=== PATIENT | male | born 1980 | race Caucasian/White ===

== ENCOUNTER → 2021-02-10 08:33 | Outpatient (BNVA) | payer OTHER, SELFPAY | PROVIDERS: Visit Provider Physician Assistant | DX: S97.112A Crushing injury of left great toe, initial encounter (principal); X50.0XXA Overexertion from strenuous movement or load, initial encounter | CPT/HCPCS: 73630; 99203 ==

== ENCOUNTER → 2021-02-16 13:37 | Outpatient (BNVA) | payer OTHER, SELFPAY | PROVIDERS: Visit Provider Physician Assistant | DX: S97.112D Crushing injury of left great toe, subsequent encounter (principal); X58.XXXD Exposure to other specified factors, subsequent encounter | CPT/HCPCS: 99213 ==

== ENCOUNTER 2024-09-03 14:23 | Emergency (ER) | payer OTHER, SELFPAY ==
--- NOTE | ~2024-09-03 | XR_ITS ---
EXAMINATION: XR ELBOW 3 VIEWS LEFT HISTORY: pain s/p fall COMPARISON: There are no prior studies available for comparison. FINDINGS: Four views of the left elbow are submitted. Osseous mineralization is normal. There is a moderately displaced intra-articular fracture of the proximal ulna. There is no dislocation. The joint spaces are preserved. There is a joint effusion with elevation of the anterior and posterior fat pads. XR/XR elbow LT min 3V IMPRESSION: Moderately displaced intra-articular fracture of the proximal ulna. Electronically signed by: Joesph Canales MD 09/03/2024 03:23 PM LISA
--- NOTE | 2024-09-03 14:25 | ED.UPPEXIN ---
HPI - Extremity Injury (Upper) General Chief Complaint: Extremity Injury, Upper Stated Complaint: L arm injury Time Seen by Provider: 09/03/24 20:55 History of Present Illness ED Provider: Simeon SEN narrative: The patient is a 44-year-old male who slipped on ice in his driveway yesterday about 24 hours ago. He landed on his left elbow and has had pain ever since. He has no numbness or tingling in his hand. He feels that he is slightly injured his knees and his back but he does not consider these significant injuries and is really here because of the left elbow problem. He did not hit his head. Related Data Previous Rx's ?Medication ?Instructions ?Recorded morphine 15 mg immediate release 15 mg PO Q6H PRN pain #14 tabs 09/03/24 tablet Allergies Allergy/AdvReac Type Severity Reaction Status Date / Time cat dander Allergy Unknown Verified 09/03/24 14:28 Review of Systems Review of Systems: Yes all other systems are reviewed and are negative [facility] Social History Social History Advance Directives: No Advance Directives Information Provided: No Physical Exam Vital Signs: Vital Signs: Last Vital Signs Temp 98.7 F 09/03/24 21:02 Pulse 76 09/03/24 21:02 Resp 16 09/03/24 21:02 BP 165/92 H 09/03/24 21:02 Pulse Ox 100 09/03/24 21:02 O2 Del Method Room Air 09/03/24 21:02 BMI result Body Mass Index 37.4 Const: Other: The patient is awake, alert, pleasant, cooperative. He appears mildly uncomfortable. HEENT: Other: No signs of trauma to the head or the face. Mucous membranes are moist. Eyes: General: appearance normal, both eyes and all related structures Neck: Neck: Yes full ROM Resp: Effort & Inspection: normal respiratory effort Skin: Other: There is soft tissue swelling to the skin of the left dorsal proximal forearm near the elbow. The skin is intact. Neuro: Other: The patient is awake and alert with a normal mental status. He has normal sensation and motor function of the left hand. Extrem: Other: The left hand is neurovascularly intact. There is soft tissue swelling to the proximal dorsal left ulnar region near the elbow. Skin is intact. The elbow is tender. Course Course Course Narrative: This is a Rapid Medical Examination (RME) performed by Milton Arora PA-C in triage. Full HPI, ROS, assessment and treatment plan per primary provider in the Main ED. 44 yo male right hand dominant presents to the ER for evaluation of left elbow pain and swelling after he fell onto his left elbow last night on the ice in his driveway. He feels like he broke his arm. He is able to range it slightly but he reports severe pain. no numbness, tingling in his arm. Plan: XR elbow Medications Administered Discontinued Medications Generic Name Dose Route Start Last Admin Trade Name Jay PRN Reason Stop Dose Admin Acetaminophen 975 mg 09/03/24 21:21 09/03/24 21:43 Acetaminophen 325 Mg Tablet PO 09/03/24 21:22 975 mg ONCE ONE Administration Morphine Sulfate 15 mg 09/03/24 21:21 09/03/24 21:43 Morphine Sulfate Immed Release 15 Mg Tablet PO 09/03/24 21:22 15 mg ONCE ONE Administration Medical Decision Making Medical Decision Making MDM Narrative: The patient is a 44-year-old male who presents for evaluation of a left elbow injury that occurred about 24 hours ago when he slipped in his driveway on ice and landed directly in his left elbow. He has soft tissue swelling to the dorsal forearm near the proximal ulna. Skin is intact. The left hand is neurovascularly intact. X-ray shows a fracture of the left proximal ulna near the elbow which is likely intra-articular. I reviewed the x-ray with the on-call orthopedic team. I applied a posterior splint with Orthoglass. A splint was given. Instructions to keep the injury elevated were given. A prescription for morphine was sent to his pharmacy. He should contact the orthopedic office in the morning for prompt follow up and additional advice to discuss further management of this injury. Procedures Orthopedic Splinting/Casting Injury #1: Side: left Upper Extremity Injury Location: elbow Upper Extremity Immobilizer: posterior splint (Orthoglass, cast padding, Greg wrap) Additional Comments: The patient tolerated application of the splint well. The patient was neurovascularly intact after application of the splint. Discharge Plan Discharge Clinical Impression: Closed fracture of left elbow Patient Disposition: Home, Self-Care Instructions: Elbow Fracture (ED) Additional Instructions: You have a fracture of the ulna bone of your forearm near the elbow. You have been placed in a splint to immobilize the injury. You will need to follow up with the orthopedic office soon for additional advice and consideration of possible surgery. Please call the office in the morning. In the meantime please keep the arm still and keep the elbow elevated. You may take 2 extra-strength acetaminophen (Tylenol) up to 3 times per day as needed for pain. In addition I have sent a prescription for morphine tablets that you may use as well. Again please contact the orthopedic office in the morning for a prompt follow up appointment and further consideration of the injury. Return to the emergency room if significantly worse. Prescriptions: New morphine 15 mg tablet 15 mg PO Q6H PRN (Reason: pain) Qty: 14 0RF Rx Instructions: Partial Fill upon patient request. Referrals: [facility] [Provider Group] (left proximal ulnar fracture) [facility] [Provider Group] (Left elbow fracture) Stand Alone Forms: Work/School Release Interventions: ED Discharge Assessment Last Done: 09/03/24 22:02 Print Language: Italian
[2024-09-03 14:26] VITALS: BP 144/94; PULSE 110; RESP 20; TEMP 36.1; O2SAT 96; BMI 37.4
[2024-09-03 21:02] VITALS: BP 165/92; PULSE 76; RESP 16; TEMP 37.1; O2SAT 100
--- OUTSIDE RECORDS SUMMARY | 2024-09-03 21:19 | XMS_ITS | Encounter Summary ---
Author Organization [facility] Address [address] [place] [id number] Care Team Providers Care Residential Aide Name Role Phone Md, Unknown Primary Care Provider Unavailabl e Reason for Referral * Imaging (Routine) - Closed Specialty Diagnoses / Procedures Referred By Penny mcgarry Referred To Contact Radiology Diagnoses Low back pain Procedures XR LUMBAR SPINE 2-3 VIEWS XR LUMBAR SPINE COMPLETE 4+ VIEWS XR LUMBAR SPINE 6+ VIEWS INCLUDING BENDING Cheri Escobar Jr., PA [address] [place] [address] Phone: tel: [phone] fax: [facility] Radiology - Central Sched[place] Phone: tel: fax: Referral ID Status Reason Start Date Expiration Date V isits Requested Visits Authorized [id number] Closed Perform Procedure 05/12/2022 05/12/2023 1 1 Encounter Details Date Type Department Care Team (Late st Contact Info) Description 05/12/2022 Ancillary Orders [facility] Radiology, Outpatient Center (Diag Rad) [address] [facility], [address] [place] [address] Cheri Escobar Jr., PA [address] [place] [address] [phone] (Work) Low back pain Social History Tobacco Use Types Packs/Day Years Used Date Smoking Tobacco: Never Assessed Sex and Gender Information Value Date Recorded Sex Assigned at Not on file Legal Sex Male 10:26 AM EDT Gender Identity Not on file Sexual Orientation Not on file COVID-19 Exposure Response Date Recorded In the last 10 days, have yo u been in contact with someone who was confirmed or suspected to have Coronavirus/COVID-19? No / Unsure 05/12/2022 10:30 AM EDT documented as of this encounter Plan of Treatment Not on file documented as of this encounter Results * XR LUMBAR SPINE 2-3 VIEWS (05/12/2022 11:47 AM EDT) Anatomical Region Laterality Modality Shoulder Computed Radiogr aphy 05/12/2022 12:2 6 PM EDT Impressions 05/12/2022 12:27 PM EDT No significant findings. Narrative 05/12/2022 12:27 PM EDT CLINICAL INDICATION: Low back pain, pain///pt states he has had lower back pain radiating down his legs since 2011. no known injury, PROTOCOL: Lumbar Spine, 3 views, AP and Lateral, and L5-S1 spot. COMPARISON: None. FINDINGS: 3 views. No significant compression deformity. No listhesis. No focal lytic or sclerotic lesions. No significant disc height narrowing. Procedure Note Tomas Murphy MD - 05/12/2022 CLINICAL INDICATION: Low back pain, pain///pt states he has had lower backpain radiating down his legs since 2011. no known injury, PROTOCOL: Lumbar Spine, 3 views, AP and Lateral, and L5-S1 spot. COMPARISON: None. FINDINGS: 3 views. No significant compression deformity. No listhesis. No focal lytic orsclerotic lesions. No significant disc height narrowing. IMPRESSION: No significant findings. us AbadParamjit Escobar Jr., PA IMG XR PROCEDURES F inal Result documented in this encounter Visit Diagnoses Diagnosis Low back pain Lumbago Low back pain Lumbago documented in this encounter Care Teams Residential Aide Relationship Specialty Start Date End Date Md, Unknown 1 Dont Change PCP - General 05/12/22 documented as of this encounter
--- OUTSIDE RECORDS SUMMARY | 2024-09-03 21:19 | XMS_ITS | Encounter Summary ---
Author Organization [facility] Address [address] [place] [address] Care Team Providers Care Induction Machine Setter Name Role Phone Md, Unknown Primary Care Provider Unavailabl e Encounter Details Date Type Department Care Team ([facility] st Contact Info) Description 05/12/2022 Ancillary Orders [facility] Radiology, Outpatient Center (Diag Rad) [address] [facility], [address] [place] [id number] Cheri Escobar Jr., PA [address] [place] [phone] (Work) Low back pain Social History Tobacco [...] on file documented as of this encounter Visit Diagnoses Diagnosis Low back pain Lumbago documented in this encounter Care Teams Induction Machine Setter Relationship Specialty Start Date End Date Md, Unknown 1 Dont Change PCP - General 05/12/22 documented as of this encounter
--- OUTSIDE RECORDS SUMMARY | 2024-09-03 21:19 | XMS_ITS | Encounter Summary ---
Author Organization [facility] Address [address] [place] [address] Care Team Providers Care Zoo Director Name Role Phone Md, Unknown Primary Care Provider Unavailabl e Reason for Referral * Imaging (Routine) - Closed Specialty Diagnoses / Procedures Referred By Penny mcgarry Referred To Contact Radiology Diagnoses Pain Procedures XR THORACIC SPINE 2 VIEWS XR THORACIC SPINE COMPLETE 4+ VIEWS Cheri Escobar Jr., PA [address] [place] [address] Phone: tel: [phone] fax: [facility] Radiology - Central [place] Phone: tel: fax: Referral ID Status Reason Start Date Expiration Date V isits Requested Visits Authorized [id number] Closed Perform Procedure 05/12/2022 05/12/2023 1 1 Encounter Details Date Type Department Care Team (Late st Contact Info) Description 05/12/2022 Ancillary Orders [facility] Radiology, Outpatient Center (Diag Rad) [address] [facility], [address] [place] [id number] Cheri Escobar Jr., PA [address] [place] [address] [phone] (Work) Pain Social History Tobacco Use Types Packs/Day Years [...] as of this encounter Results * XR THORACIC SPINE 2 VIEWS (05/12/2022 11:33 AM EDT) Anatomical Region Laterality Modality Computed Radiogr aphy 05/12/2022 12:2 5 PM EDT Impressions 05/12/2022 12:26 PM EDT No definite acute or focal finding. Mild chronic findings as discussed above. Narrative 05/12/2022 12:26 PM EDT CLINICAL INDICATION: Pain, pain///pt states he has had upper back pain since 2011 with numbness and tingling down his arms recently. no known injuries , PROTOCOL: Dorsal spine, 2 views, AP and Breathing Technique Lateral views COMPARISON: None. FINDINGS: 2 views. The upper thoracic vertebrae are not well-seen on the lateral view. No significant compression fracture or other fracture. No significant listhesis. Mild kyphosis. Minimal disc height narrowing. Question mild scoliosis of the upper thoracic spine with apex towards the right. I do not appreciate focal lytic or sclerotic lesions. Incidental note is made of cardiomegaly. Procedure Note Tomas Murphy MD - 05/12/2022 CLINICAL INDICATION: Pain, pain///pt states he has had upper back painsince 2011 with numbness and tingling down his arms recently. no knowninjuries , PROTOCOL: Dorsal spine, 2 views, AP and Breathing Technique Lateral views COMPARISON: None. FINDINGS: 2 views. The upper thoracic vertebrae are not well-seen on the lateralview. No significant compression fracture or other fracture. Nosignificant listhesis. Mild kyphosis. Minimal disc height narrowing.Question mild scoliosis of the upper thoracic spine with apex towards theright. I do not appreciate focal lytic or sclerotic lesions. Incidentalnote is made of cardiomegaly. IMPRESSION: No definite acute or focal finding. Mild chronic findings as discussedabove. us AbadParamjit Escobar Jr., PA IMG XR PROCEDURES F inal Result documented in this encounter Visit Diagnoses Diagnosis Pain Generalized pain Pain Generalized pain documented in this encounter Care Teams Zoo Director Relationship Specialty Start Date End Date Md, Unknown 1 Dont Change PCP - General 05/12/22 documented as of this encounter
--- OUTSIDE RECORDS SUMMARY | 2024-09-03 21:19 | XMS_ITS | Encounter Summary ---
Author Organization [facility] Address [address] [place] [address] Care Team Providers Care Rolling Down Machine Operator Name Role Phone Md, Unknown Primary Care Provider Unavailabl e Reason for Referral * Imaging (Routine) - Closed Specialty Diagnoses / Procedures Referred By Penny mcgarry Referred To Contact Radiology Diagnoses Pain Procedures XR KNEE 1-2 VIEWS BILAT XR KNEE 3 VIEWS BILATERAL Cheri Escobar Jr., PA [address] [place] [address] Phone: tel: [phone] fax: [facility] Radiology - Central Scheduling [place] Phone: tel: fax: Referral ID Status Reason Start Date Expiration Date V isits Requested Visits Authorized [id number] Closed Perform Procedure 05/12/2022 05/12/2023 1 1 Encounter Details Date Type Department Care Team (Late st Contact Info) Description 05/12/2022 Ancillary Orders [facility] Radiology, Outpatient Center (Diag Rad) [address] [facility], [address] [place] [address] Cheri Escobar Jr., PA [address] [place] [address] [phone] (Work) Pain Social History Tobacco Use Types [...] as of this encounter Results * XR KNEE 1-2 VIEWS BILAT (05/12/2022 11:32 AM EDT) Anatomical Region Laterality Modality Bilateral Computed Radiogr aphy 05/12/2022 12:1 4 PM EDT Impressions 05/12/2022 12:16 PM EDT Right knee: No acute fracture or dislocation. The joint spaces and articular surfaces are preserved. There is a 5 mm intra-articular body within the anterior intercondylar region. There is a moderate-sized joint effusion. Left knee: No acute fracture or dislocation. The joint spaces and articular surfaces are preserved. Small suprapatellar joint effusion. Narrative 05/12/2022 12:16 PM EDT CLINICAL INDICATION: Pain, pain///pt states he has had bilateral anterior and lateral knee pain since 2011. no known injury, PROTOCOL: Bilateral Knees, 2 views, AP and Lateral views COMPARISON: None. Procedure Note Brandyn Weaver MD - 05/12/2022 CLINICAL INDICATION: Pain, pain///pt states he has had bilateral anteriorand lateral knee pain since 2011. no known injury, PROTOCOL: Bilateral Knees, 2 views, AP and Lateral views COMPARISON: None. IMPRESSION: Right knee: No acute fracture or dislocation. The joint spaces andarticular surfaces are preserved. There is a 5 mm intra-articular bodywithin the anterior intercondylar region. There is a moderate-sized jointeffusion. Left knee: No acute fracture or dislocation. The joint spaces andarticular surfaces are preserved. Small suprapatellar joint effusion. us AbadParamjit Escobar Jr., PA IMG XR PROCEDURES F inal Result documented in this encounter Visit Diagnoses Diagnosis Pain Generalized pain Pain Generalized pain documented in this encounter Care Teams Rolling Down Machine Operator Relationship Specialty Start Date End Date Md, Unknown 1 Dont Change PCP - General 05/12/22 documented as of this encounter
--- OUTSIDE RECORDS SUMMARY | 2024-09-03 21:19 | XMS_ITS | Encounter Summary ---
Author Organization [facility] Address [address] [place] [address] Care Team Providers Care Pyrotechnist Name Role Phone Md, Unknown Primary Care Provider Unavailabl e Reason for Referral * Imaging (Routine) - Closed Specialty Diagnoses / Procedures Referred By Contac t Referred To Contact Radiology Diagnoses Pain Procedures XR ANKLE 3+ VIEWS BILATERAL Cheri Escobar Jr., PA [address] [place] [address] Phone: tel: [phone] fax: [facility] Radiology - [place] Phone: tel: fax: Referral ID Status Reason Start Date Expiration Date V isits Requested Visits Authorized [id number] Closed Perform Procedure 05/12/2022 05/12/2023 1 1 * Imaging (Routine) - Closed Specialty Diagnoses / Procedures Referred By Contac t Referred To Contact Radiology Diagnoses Shortness of breath Procedures XR CHEST 2 VIEWS Cheri Escobar Jr., PA [address] [place] [address] Phone: tel: [phone] fax: [facility] Radiology - Central [place] Phone: tel: fax: Referral ID Status Reason Start Date Expiration Date V isits Requested Visits Authorized [id number] Closed Perform Procedure 05/12/2022 05/12/2023 1 1 Encounter Details Date Type Department Care Team (Late st Contact Info) Description 05/12/2022 Ancillary Orders [facility] Radiology, Outpatient Center (Diag Rad) [address], [address] [place] [address] Cheri Escobar Jr., PA [address] [facility] [address] [place] [address] [phone] (Work) Shortness of breath; Pain; Low back pain Social History Tobacco Use [...] as of this encounter Results * XR ANKLE 3+ VIEWS BILATERAL (05/12/2022 11:46 AM EDT) Anatomical Region Laterality Modality Right Computed Radiogr aphy 05/12/2022 12:1 7 PM EDT Impressions 05/12/2022 12:19 PM EDT Right: No acute fracture or dislocation. The joint spaces and articular surfaces are preserved. The ankle mortise is congruent and talar dome is intact. Small Achilles insertional enthesophyte. Unremarkable soft tissues. Left: No acute fracture or dislocation. The joint spaces and articular surfaces are preserved. The ankle mortise is congruent and talar dome is intact. Unremarkable soft tissues. Narrative 05/12/2022 12:19 PM EDT CLINICAL INDICATION: Pain, pain/// pt states he has had bilateral ankle pain laterally radiating into his feet since 2004. hx of right ankle fracture 2004. , PROTOCOL: Bilateral Ankle, 3 views, AP, Lateral and Oblique views COMPARISON: None. Procedure Note Brandyn Weaver MD - 05/12/2022 CLINICAL INDICATION: Pain, pain/// pt states he has had bilateral anklepain laterally radiating into his feet since 2004. hx of right anklefracture 2004. , PROTOCOL: Bilateral Ankle, 3 views, AP, Lateral and Oblique views COMPARISON: None. IMPRESSION: Right: No acute fracture or dislocation. The joint spaces and articularsurfaces are preserved. The ankle mortise is congruent and talar dome isintact. Small Achilles insertional enthesophyte. Unremarkable softtissues. Left: No acute fracture or dislocation. The joint spaces and articularsurfaces are preserved. The ankle mortise is congruent and talar dome isintact. Unremarkable soft tissues. us AbadParamjit Escobar Jr., PA IMG XR PROCEDURES F inal Result * XR CHEST 2 VIEWS (05/12/2022 11:42 AM EDT) Anatomical Region Laterality Modality Computed Radiogr aphy 05/12/2022 1:12 PM EDT Impressions 05/12/2022 1:15 PM EDT No acute cardiopulmonary process. Heart is top normal in size. Narrative 05/12/2022 1:15 PM EDT CLINICAL INDICATION: Shortness of breath, sob//pt states he has had intermittent sob since 2005, he had worked around the [place] in [place]. no known heart or lung disease. , PROTOCOL: Chest, 2 views,Frontal and Lateral views ??05/12/2022 at 1005 hours. ?? COMPARISON: None. FINDINGS: Lungs are clear. No focal infiltrate or pleural effusion. The heart is top normal in size. Mildly tortuous thoracic aorta. Visualized bones are within normal limits. Procedure Note Carlos Enrique Finnegan MD - 05/12/2022 CLINICAL INDICATION: Shortness of breath, sob//pt states he has hadintermittent sob since 2005, he had worked around the [place] pits in [place] [id number]. no known heart or lung disease. , PROTOCOL: Chest, 2 views,Frontal and Lateral views 05/12/2022 at 1005 hours. COMPARISON: None. FINDINGS: Lungs are clear. No focal infiltrate or pleural effusion. The heart is topnormal in size. Mildly tortuous thoracic aorta. Visualized bones arewithin normal limits. IMPRESSION: No acute cardiopulmonary process. Heart is top normal in size. us AbadParamjit Escobar Jr., PA IMG XR PROCEDURES F inal Result documented in this encounter Visit Diagnoses Diagnosis Shortness of breath Pain Generalized pain Low back pain Lumbago Pain Generalized pain Shortness of breath documented in this encounter Care Teams Pyrotechnist Relationship Specialty Start Date End Date Md, Unknown 1 Dont Change PCP - General 05/12/22 documented as of this encounter
[2024-09-03] MEDS: Acetaminophen 325 MG TABLET 975 MG PO (21:43)
[2024-09-03] MEDS: Morphine Sulfate Immed Release 15 MG TABLET PO (21:43)
[2024-09-03 22:02] VITALS: BP 165/92; PULSE 76; RESP 16; TEMP 37.1; O2SAT 100
== END 2024-09-03 22:03 | disposition home or self-care (01) ==
PROVIDERS: Emergency Provider Emergency Medicine
DX: S52.002A Unspecified fracture of upper end of left ulna, initial encounter for closed fracture (principal); W00.0XXA Fall on same level due to ice and snow, initial encounter; M25.522 Pain in left elbow; Y93.9 Activity, unspecified; Y92.008 Other place in unspecified non-institutional (private) residence as the place of occurrence of the external cause; Y99.9 Unspecified external cause status
CPT/HCPCS: 29105; 73080; 99283

== ENCOUNTER → 2024-09-03 14:27 | Outpatient (BNV) | payer OTHER, SELFPAY | PROVIDERS: Visit Provider Radiology Diagnostic Radiology | DX: S52.032A Displaced fracture of olecranon process with intraarticular extension of left ulna, initial encounter for closed fracture (principal); W00.0XXA Fall on same level due to ice and snow, initial encounter; Y92.014 Private driveway to single-family (private) house as the place of occurrence of the external cause | CPT/HCPCS: 73080 ==

== ENCOUNTER 2024-09-05 09:02 | Outpatient (AMB) | payer OTHER, SELFPAY ==
--- NOTE | 2024-09-05 09:11 | MHC.OFFVIS ---
Vital Signs 09/05/24 09:21 Height 6 ft 2 in Weight 291 lb BMI 37.4 Intake Visit Reasons: FC - LT olecranon fx DOI 09/02/24 Intake Note: Iván is a 44 year old right hand dominant male who presents today for an ER follow up of LT olecranon fx, DOI 09/02/24. Patient reports that he slipped on ice in his driveway causing him to fall, landing directly on his elbow and left side. He presented to [facility] the following day where x-rays were taken and placed in a splint. Currently he has intermittent pain that has improved since his injury. Denies numbness or tingling. Finds relief with ibuprofen. Allergies cat dander Allergy (Verified 09/05/24 09:15) Unknown Medication List - Last Reconciled 09/05/24 by Megan Harden PA-C chlorthalidone 25 mg PO DAILY morphine 15 mg PO Q6H PRN HPI HPI FC - LT olecranon fx DOI 09/02/24: Details: 44-year-old gentleman presents to the office today for an injury he sustained to his left elbow on 09/02/2024. He states he slipped on ice and fell on the elbow. He was seen in the emergency department where x-rays were obtained which were significant for a minimally displaced olecranon fracture. He was placed in a splint and referred to our office for ortho eval. He is right-hand dominant. 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 Former smoker. Alcohol use on the weekends. Denies recreational drug use. 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[place], right hand dominant Review of Systems Const All systems reviewed & are unremarkable except as noted in HPI and below Physical Exam Vital Signs: BMI result Body Mass Index 37.4 Const General: cooperative, healthy appearing, comfortable, no acute distress, well developed and alert Orientation/consciousness: patient oriented x3 HEENT Head: Yes normal to inspection, Yes normocephalic and Yes atraumatic Eyes General: appearance normal, both eyes and all related structures Neck Neck: Yes normal visual inspection and Yes no lymphadenopathy Resp Effort & Inspection: normal respiratory effort and able to speak in complete sentences Cardio Rate: regular rate Peripheral pulses: Peripheral pulses 2+ throughout GI Inspection: Yes normal to inspection Palpation (GI): Soft to palpation Skin General skin exam: no rashes or lesions noted Neuro General: patient oriented x3 Extrem Other: Left elbow is normal to inspection. He does have diffuse swelling and some ecchymosis over the olecranon. Neurovascularly intact. Psych Appearance: grossly normal Mental Status: mental status grossly normal Office Procedures Casting/Splints 36021-[id number] arm splint application Procedure code (CPT) selection complete Results Reviewed Results Reviewed: X-rays of the left elbow obtained in the emergency department on 09/03 show a minimally displaced olecranon fracture. Assessment & Plan Assessment & Plan (1) Fracture of left olecranon process: Code(s): S52.022A - Displaced fracture of olecranon process without intraarticular extension of left ulna, initial encounter for closed fracture Category: Medical Plan: I discussed the case with Dr. Chung I discussed the extent of the injury to the patient and options available. Given the extent of the fracture pattern and high risk of further displacement, it is recommended that we surgically fix this to help with stability and restoring anatomy. I explained to the patient the procedure in detail along with the risks benefits and alternatives. Risks including but not limited to infection, wound breakdown, stiffness, on going pain, nonunion or malunion, and possible complications with hardware. He does understand all this and would like to proceed with open reduction internal fixation of the left elbow with Dr. Chung. Consents were signed today with the patient. Coding Level of Care Code New Pt Level 4 (54693) Complex EM visit Add On G2211 Diagnoses Fracture of left olecranon process S52.022A CPT Codes Splint - CPT: [id number] arm splint application ([id number])
[2024-09-05 09:21] VITALS: BMI 37.4
--- OUTSIDE RECORDS SUMMARY | 2024-09-05 09:45 | XMS_ITS | Encounter Summary ---
Author Organization [facility] Address [address] [place] [address] Care Team Providers Care German Professor Name Role Phone Md, Unknown Primary Care Provider Unavailabl e Encounter Details Date Type Department Care Team ([facility] st Contact Info) Description 05/12/2022 Ancillary Orders [facility] Radiology, Outpatient Center (Diag Rad) 534 [facility], [address] [place] [address] Cheri Escobar Jr., [address] [address] [phone] (Work) Low back pain Social History Tobacco [...] Lumbago documented in this encounter Care Teams German Professor Relationship Specialty Start Date End Date Md, Unknown 1 Dont Change PCP - General 05/12/22 documented as of this encounter
--- OUTSIDE RECORDS SUMMARY | 2024-09-05 09:45 | XMS_ITS | Encounter Summary ---
Author Organization [facility] Address [address] [place] [address] Care Team Providers Care Records Specialist Name Role Phone Md, Unknown Primary Care Provider Unavailabl e Reason for Referral * Imaging (Routine) - Closed Specialty Diagnoses / Procedures Referred By Penny mcgarry Referred To Contact Radiology Diagnoses Pain Procedures XR THORACIC SPINE 2 VIEWS XR THORACIC SPINE COMPLETE 4+ VIEWS Cheri Escobar Jr., PA [address] [place] [address] Phone: tel: [phone] fax: [facility] Radiology - Central Scheduling [place] Phone: tel: fax: Referral ID Status Reason Start Date Expiration Date V isits Requested Visits Authorized [id number] Closed Perform Procedure 05/12/2022 05/12/2023 1 1 Encounter Details Date Type Department Care Team (Late st Contact Info) Description 05/12/2022 Ancillary Orders [facility] Radiology, Outpatient Center (Diag Rad) 534 [facility], [address] [place] [id number] Cheri Escobar Jr., PA [address] [place] [address] [phone] (Work) Pain Social History Tobacco Use Types [...] pain documented in this encounter Care Teams Records Specialist Relationship Specialty Start Date End Date Md, Unknown 1 Dont Change PCP - General 05/12/22 documented as of this encounter
--- OUTSIDE RECORDS SUMMARY | 2024-09-05 09:45 | XMS_ITS | Encounter Summary ---
Author Organization [facility] Address [address] [place] [address] Care Team Providers Care Thoracic Medicine Physician Name Role Phone Md, Unknown Primary Care Provider Unavailabl e Reason for Referral * Imaging (Routine) - Closed Specialty Diagnoses / Procedures Referred By Penny mcgarry Referred To Contact Radiology Diagnoses Pain Procedures XR KNEE 1-2 VIEWS BILAT XR KNEE 3 VIEWS BILATERAL Cheri Escobar Jr., PA [address] [place] [address] Phone: tel: [phone] fax: [facility] Radiology - Central Scheduling [place] Phone: tel: fax: Referral ID Status Reason Start Date Expiration Date V isits Requested Visits Authorized [id number] Closed Perform Procedure 05/12/2022 05/12/2023 1 1 Encounter Details Date Type Department Care Team (Late st Contact Info) Description 05/12/2022 Ancillary Orders [facility] Radiology, Outpatient Center (Diag Rad) 534 [facility], [address] [place] [address] Cheri Escobar Jr., PA [address] [place] [address] [phone] (Work) Pain Social History Tobacco Use Types [...] pain documented in this encounter Care Teams Thoracic Medicine Physician Relationship Specialty Start Date End Date Md, Unknown 1 Dont Change PCP - General 05/12/22 documented as of this encounter
--- OUTSIDE RECORDS SUMMARY | 2024-09-05 09:45 | XMS_ITS | Encounter Summary ---
Author Organization [facility] Address [address] [place] [address] Care Team Providers Care Creative Specialist Name Role Phone Md, Unknown Primary Care Provider Unavailabl e Reason for Referral * Imaging (Routine) - Closed Specialty Diagnoses / Procedures Referred By Penny mcgarry Referred To Contact Radiology Diagnoses Low back pain Procedures XR LUMBAR SPINE 2-3 VIEWS XR LUMBAR SPINE COMPLETE 4+ VIEWS XR LUMBAR SPINE 6+ VIEWS INCLUDING BENDING Cheri Escobar Jr., PA [address] [place] [address] Phone: tel: [phone] fax: [facility] Radiology - Central Scheduling [place] Phone: tel: fax: Referral ID Status Reason Start Date Expiration Date V isits Requested Visits Authorized [id number] Closed Perform Procedure 05/12/2022 05/12/2023 1 1 Encounter Details Date Type Department Care Team (Late st Contact Info) Description 05/12/2022 Ancillary Orders [facility] Radiology, Outpatient Center (Diag Rad) 534 [facility], [address] [place] [address] Cheri Escobar Jr., PA [address] [place] [address] [phone] (Work) Low back pain Social History Tobacco [...] Lumbago documented in this encounter Care Teams Creative Specialist Relationship Specialty Start Date End Date Md, Unknown 1 Dont Change PCP - General 05/12/22 documented as of this encounter
--- OUTSIDE RECORDS SUMMARY | 2024-09-05 09:46 | XMS_ITS | Encounter Summary ---
Author Organization [facility] Address [address] [place] [address] Care Team Providers Care Bath Solution Maker Name Role Phone Md, Unknown Primary Care Provider Unavailabl e Reason for Referral * Imaging (Routine) - Closed Specialty Diagnoses / Procedures Referred By Contac t Referred To Contact Radiology Diagnoses Pain Procedures XR ANKLE 3+ VIEWS BILATERAL Cheri Escobar Jr., PA [address] [place] [address] Phone: tel: [phone] fax: [facility] Radiology - Central Scheduling [place] Phone: tel: fax: Referral ID Status Reason Start Date Expiration Date V isits Requested Visits Authorized [id number] Closed Perform Procedure 05/12/2022 05/12/2023 1 1 * Imaging (Routine) - Closed Specialty Diagnoses / Procedures Referred By Contac t Referred To Contact Radiology Diagnoses Shortness of breath Procedures XR CHEST 2 VIEWS Cheri Escobar Jr., PA [address] [place] [address] Phone: tel: [phone] fax: [facility] Radiology - Central Scheduling [place] Phone: tel: fax: Referral ID Status Reason Start Date Expiration Date V isits Requested Visits Authorized [id number] Closed Perform Procedure 05/12/2022 05/12/2023 1 1 Encounter Details Date Type Department Care Team (Late st Contact Info) Description 05/12/2022 Ancillary Orders [facility] Radiology, Outpatient Center (Diag Rad) [address], [address] [place] [address] Cheri Escobar Jr., PA [address] [facility] [address] [place] [address] [phone] (Work) Shortness of breath; Pain; [...] 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 no known heart or lung disease. , [...] breath documented in this encounter Care Teams Bath Solution Maker Relationship Specialty Start Date End Date Md, Unknown 1 Dont Change PCP - General 05/12/22 documented as of this encounter
== END 2024-09-05 10:02 | disposition home or self-care (01) ==
PROVIDERS: Visit Provider Physician Assistant
DX: S52.022A Displaced fracture of olecranon process without intraarticular extension of left ulna, initial encounter for closed fracture (principal)
CPT/HCPCS: 24670; 99204; G2211

== ENCOUNTER → 2024-09-05 09:02 | Outpatient (BNVA) | payer OTHER, SELFPAY | PROVIDERS: Visit Provider Physician Assistant | DX: S52.022A Displaced fracture of olecranon process without intraarticular extension of left ulna, initial encounter for closed fracture (principal) | CPT/HCPCS: 24670; 99202 ==

== ENCOUNTER 2024-09-11 13:29 | Day surgery (SDC) | payer OTHER, SELFPAY ==
[2024-09-11] VITALS (9 sets, daily range): BP systolic 143–160; BP diastolic 84–103; PULSE 94–106; RESP 12–22; TEMP 36.3–37.1; O2SAT 93–98; BMI 36.5
--- NOTE | ~2024-09-11 | FL_ITS ---
EXAMINATION: FL GUIDANCE ONLY HISTORY: Intraoperative Guidance Mini C-Arm COMPARISON: Correlation is made with plain films of the left elbow dated 09/03/2024. TECHNIQUE: Fluoroscopy time: Less than 0.1 minutes. Cumulative Dose: 0.371 mGy. DAP: 0.24404 uGy-m2 (microgray-meter squared). Images: 2. FINDINGS: Images demonstrate internal fixation of the previously seen fracture of the olecranon with K wires and a cerclage wire. FL/FL guidance in OR IMPRESSION: Fluoroscopy during procedure. Please see procedure report for additional information. Electronically signed by: Joesph Canales MD 09/12/2024 08:12 AM LISA
--- NOTE | 2024-09-11 14:03 | P.CONAN_ITS ---
[facility] Active Problems Active Problems: All Active Problems Fracture of left olecranon process (Acute) Past Medical History Medical History (Updated 09/11/24 @ 13:58 by Jessie Humphreys, RN) HTN (hypertension) Sleep apnea Family History Family history of problems with anesthesia: No Surgical History Surgical History (Updated 09/11/24 @ 13:50 by Jessie Humphreys RN) History of dental surgery No pertinent past surgical history History of Problems with Anesthesia: No Social History Social History (Updated 09/05/24 @ 09:17 by Lubna Sanchez Danna) Are you a primary attending ambulatory care to a significant other at home: No Do you presently have visiting nurse or other home services: No Patient Tobacco Use Status: Former Tobacco user Tobacco use type: Cigarette Years Smoked: 6 Smoked in Last 30 Days: No Use of substances other than those prescribed or required for medical reasons: No Have you been hit, kicked, punched, or otherwise hurt by someone within the past year? 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[place], right hand dominant Meds Allergies Allergy/AdvReac Type Severity Reaction Status Date / Time cat dander Allergy Intermediate Sneezing Verified 09/11/24 13:42 Home Medications ?Medication ?Instructions ?Recorded ?Confirmed ?Last Taken ?Type chlorthalidone 25 mg tablet 25 mg PO DAILY 09/05/24 09/11/24 09/10/24 History Exam Height,Weight and Vital Signs: Height 6 ft 3 in Weight 132.54 kg Last Vital Signs Temp 98.8 F 09/11/24 14:02 Pulse 106 H 09/11/24 14:02 Resp 16 09/11/24 14:02 BP 149/103 H 09/11/24 14:02 Pulse Ox 93 09/11/24 14:02 O2 Del Method Room Air 09/11/24 14:02 Airway Mallampati Class: II (caps laterally) TM Dist: >3cm Neck ROM: Full Heart: rrr Lungs: cta Assessment and Plan Assessment Anesthesia Assessment: Anesthesia Plan Discussed and Chart Reviewed Final Anesthetic Review Family History of Problems with Anesthesia: No History of Problems with Anesthesia: No NPO: Yes ASA Class: III Final Preanesthetic Review: No Changes in Pt Med Stat, Meds/Allgs Chart Reviewed and Consent Obtained/Reviewed Patient Risk: Intermediate Procedure Risk: Low Anesthetic Plan Anesthetic Plan: GA Disposition: Standard PACU
--- NOTE | 2024-09-11 14:22 | MHC.SHP ---
Pre-Procedural Eval Section A - 24 Hr Update-Section A only Date of Service: 09/11/24 The patient is an INPATIENT: No Changes since office visit: No Cold of Flu in the past 2 weeks, No New Medical Problems, No Changes in Medication and No Patient answered all questions The patient has been examined within 24 hours of the surgical procedure. The History & Physical has been completed within 30 days and I have reviewed it.: Yes Section B - Complete if H&P > 30 days Chief Complaint: Displaced fracture of olecranon process without Allergies: Allergies Allergy/AdvReac Type Severity Reaction Status Date / Time cat dander Allergy Intermediate Sneezing Verified 09/11/24 13:42 Plan I have reviewed the history and physical and performed a pertinent physical examination on my patient. No changes have occurred unless specified. Time Spent With Patient Time: Total time managing care of this patient today ____ minutes.
--- OUTSIDE RECORDS SUMMARY | 2024-09-11 15:43 | XMS_ITS | Encounter Summary ---
Author Organization [facility] Address [address] [place] [address] Care Team Providers Care Director Perioperative Name Role Phone Md, Unknown Primary Care Provider Unavailabl e Reason for Referral * Imaging (Routine) - Closed Specialty Diagnoses / Procedures Referred By Penny mcgarry Referred To Contact Radiology Diagnoses Pain Procedures XR THORACIC SPINE 2 VIEWS XR THORACIC SPINE COMPLETE 4+ VIEWS Cheri Escobar Jr., PA [address] [place] [address] Phone: tel: [phone] fax: [facility] Radiology - Central Scheduling [place] Phone: tel: fax: Referral ID Status Reason Start Date Expiration Date V isits Requested Visits Authorized [id number] Closed Perform Procedure 05/12/2022 05/12/2023 1 1 Encounter Details Date Type Department Care Team (Late st Contact Info) Description 05/12/2022 Ancillary Orders [facility] Radiology, Outpatient Center (Diag Rad) 534 [facility], [address] [place] [id number] Cheri Escobar Jr., PA [address] [place] [address] [phone] (Work) Pain Social History Tobacco Use Types [...] pain documented in this encounter Care Teams Director Perioperative Relationship Specialty Start Date End Date Md, Unknown 1 Dont Change PCP - General 05/12/22 documented as of this encounter
--- OUTSIDE RECORDS SUMMARY | 2024-09-11 15:43 | XMS_ITS | Encounter Summary ---
Author Organization [facility] Address [address] [place] [address] Care Team Providers Care Grocery Cashier Name Role Phone Md, Unknown Primary Care Provider Unavailabl e Encounter Details Date Type Department Care Team ([facility] st Contact Info) Description 05/12/[address] [facility] Radiology, Outpatient Center (Diag Rad) 534 [facility], [address] [place] [address] Cheri Escobar Jr., [address] [address] [phone] (Work) Low back pain Social History Tobacco [...] Lumbago documented in this encounter Care Teams Grocery Cashier Relationship Specialty Start Date End Date Md, Unknown 1 Dont Change PCP - General 05/12/22 documented as of this encounter
--- OUTSIDE RECORDS SUMMARY | 2024-09-11 15:43 | XMS_ITS | Encounter Summary ---
Author Organization [facility] Address [address] [place] [address] Care Team Providers Care Reference Library Assistant Name Role Phone Md, Unknown Primary Care Provider Unavailabl e Reason for Referral * Imaging (Routine) - Closed Specialty Diagnoses / Procedures Referred By Penny mcgarry Referred To Contact Radiology Diagnoses Low back pain Procedures XR LUMBAR SPINE 2-3 VIEWS XR LUMBAR SPINE COMPLETE 4+ VIEWS XR LUMBAR SPINE 6+ VIEWS INCLUDING BENDING Cheri Escobar Jr., PA [address] [place] [address] Phone: tel: [phone] fax: [facility] Radiology - Central Scheduling [place] Phone: tel: fax: Referral ID Status Reason Start Date Expiration Date V isits Requested Visits Authorized [id number] Closed Perform Procedure 05/12/2022 05/12/2023 1 1 Encounter Details Date Type Department Care Team (Late st Contact Info) Description 05/12/2022 Ancillary Orders [facility] Radiology, Outpatient Center (Diag Rad) [address] [facility], [address] [place] [address] Cheri Escobar Jr., PA [address] [place] [address] [phone] (Work) Low back pain Social History Tobacco [...] Lumbago documented in this encounter Care Teams Reference Library Assistant Relationship Specialty Start Date End Date Md, Unknown 1 Dont Change PCP - General 05/12/22 documented as of this encounter
--- OUTSIDE RECORDS SUMMARY | 2024-09-11 15:43 | XMS_ITS | Encounter Summary ---
Author Organization [facility] Address [address] [place] [address] Care Team Providers Care Flour Blender Name Role Phone Md, Unknown Primary Care Provider Unavailabl e Reason for Referral * Imaging (Routine) - Closed Specialty Diagnoses / Procedures Referred By Contac t Referred To Contact Radiology Diagnoses Pain Procedures XR ANKLE 3+ VIEWS BILATERAL Cheri Escobar Jr., PA [address] [place] [address] Phone: tel: [phone] fax: [facility] Radiology - Central Scheduling [place] Phone: tel: fax: Referral ID Status Reason Start Date Expiration Date V isits Requested Visits Authorized [id number] Closed Perform Procedure 05/12/2022 05/12/2023 1 1 * Imaging (Routine) - Closed Specialty Diagnoses / Procedures Referred By Contac t Referred To Contact Radiology Diagnoses Shortness of breath Procedures XR CHEST 2 VIEWS Cheri Escobar Jr., PA [address] [place] [address] Phone: tel: [phone] fax: [facility] Radiology - Central Scheduling [place] Phone: tel: fax: Referral ID Status Reason Start Date Expiration Date V isits Requested Visits Authorized [id number] Closed Perform Procedure 05/12/2022 05/12/2023 1 1 Encounter Details Date Type Department Care Team (Late st Contact Info) Description 05/12/2022 Ancillary Orders [facility] Radiology, Outpatient Center (Diag Rad) [address], [address] [place] [address] Cheri Escobar Jr., PA [address] [facility] [address] [place] [address] [phone] (Work) Shortness of breath; Pain; [...] worked around the burn pits in [place] [id number]. no known heart or lung disease. , [...] breath documented in this encounter Care Teams Flour Blender Relationship Specialty Start Date End Date Md, Unknown 1 Dont Change PCP - General 05/12/22 documented as of this encounter
--- OUTSIDE RECORDS SUMMARY | 2024-09-11 15:43 | XMS_ITS | Encounter Summary ---
Author Organization [facility] Address [address] [place] [address] Care Team Providers Care Video Game Creator Name Role Phone Md, Unknown Primary Care Provider Unavailabl e Reason for Referral * Imaging (Routine) - Closed Specialty Diagnoses / Procedures Referred By Penny mcgarry Referred To Contact Radiology Diagnoses Pain Procedures XR KNEE 1-2 VIEWS BILAT XR KNEE 3 VIEWS BILATERAL Cheri Escobar Jr., PA [address] [place] [address] Phone: tel: [phone] fax: [facility] Radiology - Central Scheduling [place] Phone: tel: fax: Referral ID Status Reason Start Date Expiration Date V isits Requested Visits Authorized [id number] Closed Perform Procedure 05/12/2022 05/12/2023 1 1 Encounter Details Date Type Department Care Team (Late st Contact Info) Description 05/12/2022 Ancillary Orders [facility] Radiology, Outpatient Center (Diag Rad) [address] [facility], [address] [place] [address] Cheri Escobar Jr., PA [address] [place] [address] [phone] (Work) Pain Social History Tobacco Use Types [...] preserved. Small suprapatellar joint effusion. us AbadParamjit Escobra Jr., PA IMG XR PROCEDURES F inal Result documented in this encounter Visit Diagnoses Diagnosis Pain Generalized pain Pain Generalized pain documented in this encounter Care Teams Video Game Creator Relationship Specialty Start Date End Date Md, Unknown 1 Dont Change PCP - General 05/12/22 documented as of this encounter
--- OUTSIDE RECORDS SUMMARY | 2024-09-11 15:43 | XMS_ITS | Clinical Summary ---
Author Organization [facility] Address [address] [place] [address] Care Team Providers Care Wedding Designer Name Role Phone Md, Unknown Primary Care Provider Unavailabl e Social History Tobacco Use Types Packs/Day Years Used Date Smoking Tobacco: Never Assessed Sex and Gender Information Value Date Recorded Sex Assigned at Not on file Legal Sex Male 10:26 AM EDT Gender Identity Not on file Sexual Orientation Not on file Plan of Treatment Health Maintenance Due Date Last Done Comments Hepatitis C Screening 1980 Lipid Panel 1980 Annual Physical Exam 1998 Tdap and Td Vaccines Adult 1999 COVID-19 Vaccine (2023-2 5 season) 2024 Influenza Vaccine (#1) 2024 HIB Vaccines Aged Out No longer eligi ble based on patient's age to complete this topic HPV Vaccines Aged Out No longer eligi ble based on patient's age to complete this topic Hepatitis A Vaccines Aged Out No long er eligible based on patient's age to complete this topic IPV Vaccines Aged Out No longer eligi ble based on patient's age to complete this topic Meningococcal Vaccine Aged Out No karson bashir eligible based on patient's age to complete this topic Pneumococcal Vaccine: Peds ( 0 to 5 Yrs) and At-Risk Pts (6 to 49 Yrs) Aged Out No lo nger eligible based on patient's age to complete this topic RSV <20 Months Aged Out No longer eusebio gible based on patient's age to complete this topic Insurance [employer] Care Teams Wedding Designer Relationship Specialty Start Date End Date Md, Unknown 1 Dont Change PCP - General 05/12/22
--- NOTE | 2024-09-11 16:51 | P.BOP_ITS ---
Brief Operative Note Date of Service: 09/11/24 Pre-op diagnosis: Left olecranon fracture Post-op diagnosis: same Procedure: Left olecranon ORIF Implants: 1.6 k wires x 2 18 g cerclage x 1 Surgeon: Kyle Chung MD Anesthesia: GLMA and regional Was an Family Consumer Scientist used for this Procedure?: Yes Family Consumer Scientist: Ursula Boothe Estimated blood loss (mL): 50 IV fluids (mL): 800 Pathology: none sent Condition: stable Disposition: PACU
[2024-09-11] MEDS: Acetaminophen 1,000 MG/100 ML PIGGYBACK 400 MG IV (17:08)
[2024-09-11] MEDS: Ketorolac Tromethamine 15 MG/ML VIAL IVPUSH (17:09)
[2024-09-11] MEDS: fentaNYL citrate/PF 100 MCG/2 ML VIAL 50 MCG IVPUSH ×2 (17:20→17:25)
[2024-09-11] MEDS: oxyCODONE HCl Immed Release 5 MG TABLET PO (17:45)
--- NOTE | 2024-09-13 17:18 | P.OP_ITS ---
Operative Note Operative Note Date of Service: 09/11/24 Narrative: Date of Service: 09/11/24 Pre-op diagnosis: Left olecranon fracture Post-op diagnosis: same Procedure: Left olecranon ORIF Implants: 1.6 k wires x 2 18 g cerclage x 1 Surgeon: Kyle Chung MD Anesthesia: GLMA and regional Was an Tinner Helper used for this Procedure?: Yes Tinner Helper: Ursula Boothe Estimated blood loss (mL): 50 IV fluids (mL): 800 Pathology: none sent Condition: stable Disposition: PACU Patient was brought to the operating room and placed supine on the surgical table. He was prepped and draped in standard sterile fashion and a time out was called to indentify proper site, proper procedure and IV antibiotics per weight were administered. I began by making a direct posterior incision from the tip of the olecranon down a proximally 6-7 cm. Full-thickness flaps were developed and the fracture was identified. This was an oblique intra-articular fracture of the olecranon. Radiographs confirmed this. Radiographic fluoroscopy also confirmed this. I irrigated copiously and cleaned out the fracture site. I then used a tenaculum to provisionally reduce the fracture. Then, while under fluoroscopic guidance, I placed 20.65 K-wires from posterior to anterior and proximal to distal across the fracture site and into the volar aspect of the proximal humerus. Once I was satisfied with the position of these pins I drilled a small hole through the shaft of the ulna and ran an 18 gauge cerclage wire through this. I then made a figure-eight configuration of the cerclage wire around the K-wires and tightened. Again I confirmed fracture reduction and hardware position using biplanar fluoroscopy and I was satisfied with both of these parameters. I therefore cut the pins and bent them and impacted them into the olecranon. Prior to this I twisted the cerclage wire to tighten it fully and then cut this and compressed it into the bone. I irrigated copiously and closed with absorbable suture and adela. Hardware was not proud and I was satisfied with the position of the hardware and the position of the fracture. Patient was placed in sterile dressing extubated and brought to recovery room in stable condition. There were no known complications.
== END 2024-09-11 17:56 | disposition home or self-care (01) ==
PROVIDERS: Visit Provider Orthopaedic Surgery
PROC: (CPT 24685; principal; 2024-09-11 15:30)
DX: S52.032A Displaced fracture of olecranon process with intraarticular extension of left ulna, initial encounter for closed fracture (principal); W00.0XXA Fall on same level due to ice and snow, initial encounter; Y93.01 Activity, walking, marching and hiking; Y92.014 Private driveway to single-family (private) house as the place of occurrence of the external cause; Y99.9 Unspecified external cause status; I10 Essential (primary) hypertension; G47.30 Sleep apnea, unspecified; Z99.89 Dependence on other enabling machines and devices; Z79.899 Other long term (current) drug therapy; Z87.891 Personal history of nicotine dependence
CPT/HCPCS: 24685; J0131; J0690; J1100; J1885; J2003; J2250; J2405; J2704; J3010

== ENCOUNTER 2024-09-19 12:16 | Outpatient (REF) | payer OTHER, SELFPAY ==
--- NOTE | ~2024-09-19 | XR_ITS ---
EXAMINATION: XR ELBOW 1-2 VIEWS LEFT HISTORY: M25.529 - Pain in unspecified elbow COMPARISON: Comparison is made with the prior examination dated 09/03/2024. FINDINGS: Three views of the left elbow are submitted. Osseous mineralization is normal. The patient is status post internal fixation of the previously seen displaced fracture of the olecranon process of the ulna with cerclage and K wires. Alignment is anatomic. The joint spaces are preserved. The soft tissues are unremarkable. XR/XR elbow LT 2V IMPRESSION: Internal fixation of the previously seen displaced fracture of the olecranon process of the ulna. Electronically signed by: Joesph Canales MD 09/19/2024 02:37 PM EST
--- OUTSIDE RECORDS SUMMARY | 2024-09-19 13:23 | XMS_ITS | Encounter Summary ---
Author Organization [facility] Address [address] [place] [address] Care Team Providers Care Glue Wheel Operator Name Role Phone Md, Unknown Primary Care Provider Unavailabl e Reason for Referral * Imaging (Routine) - Closed Specialty Diagnoses / Procedures Referred By Penny mcgarry Referred To Contact Radiology Diagnoses Pain Procedures XR THORACIC SPINE 2 VIEWS XR THORACIC SPINE COMPLETE 4+ VIEWS Cheri Escobar Jr., PA [address] [place] [address] Phone: tel: [phone] fax: [facility] Radiology - Central Scheduling [place] Phone: tel: fax: Referral ID Status Reason Start Date Expiration Date V isits Requested Visits Authorized [id number] Closed Perform Procedure 05/12/2022 05/12/2023 1 1 Encounter Details Date Type Department Care Team (Late st Contact Info) Description 05/12/2022 Ancillary Orders [facility] Radiology, Outpatient Center (Diag Rad) [address] [facility], [address] [place] [address] Cheri Escobar Jr., PA [address] [place] [address] [phone] (Work) Pain Social History Tobacco Use Types [...] pain documented in this encounter Care Teams Glue Wheel Operator Relationship Specialty Start Date End Date Md, Unknown 1 Dont Change PCP - General 05/12/22 documented as of this encounter
--- OUTSIDE RECORDS SUMMARY | 2024-09-19 13:23 | XMS_ITS | Encounter Summary ---
Author Organization [facility] Address [address] [place] [address] Care Team Providers Care Ground Mixer Name Role Phone Md, Unknown Primary Care Provider Unavailabl e Encounter Details Date Type Department Care Team ([facility] st Contact Info) Description 05/12/2022 Ancillary Orders [facility] Radiology, Outpatient Center (Diag Rad) 534 [facility], [address] [place] [address] Cheri Escobar Jr., [address] [address] [phone] (Work) Low back pain Social History Tobacco [...] Lumbago documented in this encounter Care Teams Ground Mixer Relationship Specialty Start Date End Date Md, Unknown 1 Dont Change PCP - General 05/12/22 documented as of this encounter
--- OUTSIDE RECORDS SUMMARY | 2024-09-19 13:23 | XMS_ITS | Encounter Summary ---
Author Organization [facility] Address [address] [place] [address] Care Team Providers Care Night Auditor Name Role Phone Md, Unknown Primary Care Provider Unavailabl e Reason for Referral * Imaging (Routine) - Closed Specialty Diagnoses / Procedures Referred By Penny mcgarry Referred To Contact Radiology Diagnoses Low back pain Procedures XR LUMBAR SPINE 2-3 VIEWS XR LUMBAR SPINE COMPLETE 4+ VIEWS XR LUMBAR SPINE 6+ VIEWS INCLUDING BENDING Cheri Escobar Jr., PA [address] [place] [address] Phone: tel: [phone] fax: [facility] Radiology - Central Scheduling [place] Phone: tel: fax: Referral ID Status Reason Start Date Expiration Date V isits Requested Visits Authorized [id number] Closed Perform Procedure 05/12/2022 05/12/2023 1 1 Encounter Details Date Type Department Care Team (Late st Contact Info) Description 05/12/2022 Ancillary Orders [facility] Radiology, Outpatient Center (Diag Rad) 534 [facility], [address] [place] [address] Cheri Escobar Jr., PA [address] [place] [address] [phone] (Work) Low back pain Social History Tobacco [...] Lumbago documented in this encounter Care Teams Night Auditor Relationship Specialty Start Date End Date Md, Unknown 1 Dont Change PCP - General 05/12/22 documented as of this encounter
--- OUTSIDE RECORDS SUMMARY | 2024-09-19 13:23 | XMS_ITS | Clinical Summary ---
Author Organization [facility] Address [address] [place] [address] Care Team Providers Care Manager Roofing Name Role Phone Md, Unknown Primary Care [...] this topic Insurance [employer] Care Teams Manager Roofing Relationship Specialty Start Date End Date Md, Unknown 1 Dont Change PCP - General 05/12/22
--- OUTSIDE RECORDS SUMMARY | 2024-09-19 13:23 | XMS_ITS | Encounter Summary ---
Author Organization [facility] Address [address] [place] [address] Care Team Providers Care Air Bag Curer Name Role Phone Md, Unknown Primary Care Provider Unavailabl e Reason for Referral * Imaging (Routine) - Closed Specialty Diagnoses / Procedures Referred By Contac t Referred To Contact Radiology Diagnoses Pain Procedures XR ANKLE 3+ VIEWS BILATERAL Cheri Escobar Jr., PA [address] [place] [address] Phone: tel: [phone] fax: [facility] Radiology - Central Scheduling [place] Phone: tel: fax: Referral ID Status Reason Start Date Expiration Date V isits Requested Visits Authorized [id number] Closed Perform Procedure 05/12/2022 05/12/2023 1 1 * Imaging (Routine) - Closed Specialty Diagnoses / Procedures Referred By Contac t Referred To Contact Radiology Diagnoses Shortness of breath Procedures XR CHEST 2 VIEWS Cheri Escobar Jr., PA [address] [place] [address] Phone: tel: [phone] fax: [facility] Radiology - Central Scheduling [place] Phone: tel: fax: Referral ID Status Reason Start Date Expiration Date V isits Requested Visits Authorized [id number] Closed Perform Procedure 05/12/2022 05/12/2023 1 1 Encounter Details Date Type Department Care Team (Late st Contact Info) Description 05/12/2022 Ancillary Orders [facility] Radiology, Outpatient Center (Diag Rad) [address], [address] [place] [address] Cheri Escobar Jr., PA [address] [facility] [address] [place] [address] [phone] (Work) Shortness of breath; Pain; [...] worked around the burn pits in [place] [id number]. no known heart or lung disease. , [...] breath documented in this encounter Care Teams Air Bag Curer Relationship Specialty Start Date End Date Md, Unknown 1 Dont Change PCP - General 05/12/22 documented as of this encounter
--- OUTSIDE RECORDS SUMMARY | 2024-09-19 13:23 | XMS_ITS | Encounter Summary ---
Author Organization [facility] Address [address] [place] [address] Care Team Providers Care Executive Producer Name Role Phone Md, Unknown Primary Care Provider Unavailabl e Reason for Referral * Imaging (Routine) - Closed Specialty Diagnoses / Procedures Referred By Penny mcgarry Referred To Contact Radiology Diagnoses Pain Procedures XR KNEE 1-2 VIEWS BILAT XR KNEE 3 VIEWS BILATERAL Cheri Escobar Jr., PA [address] [place] [address] Phone: tel: [phone] fax: [facility] Radiology - Central Scheduling [place] Phone: tel: fax: Referral ID Status Reason Start Date Expiration Date V isits Requested Visits Authorized [id number] Closed Perform Procedure 05/12/2022 05/12/2023 1 1 Encounter Details Date Type Department Care Team (Late st Contact Info) Description 05/12/2022 Ancillary Orders [facility] Radiology, Outpatient Center (Diag Rad) 534 [facility], [address] [place] [address] Cheri Escobar Jr., PA [address] [place] [address] [phone] (Work) Pain Social History Tobacco Use Types [...] pain documented in this encounter Care Teams Executive Producer Relationship Specialty Start Date End Date Md, Unknown 1 Dont Change PCP - General 05/12/22 documented as of this encounter
== END 2024-09-19 12:17 | disposition home or self-care (01) ==
LOC: HO.HOSX 12:16
PROVIDERS: Visit Provider Physician Assistant
DX: S52.022D Displaced fracture of olecranon process without intraarticular extension of left ulna, subsequent encounter for closed fracture with routine healing (principal); Z98.890 Other specified postprocedural states
CPT/HCPCS: 73070; 99212

== ENCOUNTER → 2024-09-19 12:16 | Outpatient (AMB) | payer OTHER, SELFPAY ==
--- OUTSIDE RECORDS SUMMARY | 2024-09-19 12:18 | XMS_ITS | Clinical Summary ---
Author Organization [facility] Address [address] [place] [address] Care Team Providers Care [employer] Name Role Phone Md, Unknown Primary Care [...] this topic Insurance [employer] Care Teams [employer] Relationship Specialty Start Date End Date Md, Unknown 1 Dont Change PCP - General 05/12/22
--- OUTSIDE RECORDS SUMMARY | 2024-09-19 12:18 | XMS_ITS | Encounter Summary ---
Author Organization [facility] Address [address] [place] [address] Care Team Providers Care Communications Tower Technician Name Role Phone Md, Unknown Primary Care Provider Unavailabl e Reason for Referral * Imaging (Routine) - Closed Specialty Diagnoses / Procedures Referred By Penny mcgarry Referred To Contact Radiology Diagnoses Pain Procedures XR KNEE 1-2 VIEWS BILAT XR KNEE 3 VIEWS BILATERAL Cheri Escobar Jr., PA [address] [place] [address] Phone: tel: [phone] fax: [facility] Radiology - Central Scheduling [place] Phone: tel: fax: Referral ID Status Reason Start Date Expiration Date V isits Requested Visits Authorized [id number] Closed Perform Procedure 05/12/2022 05/12/2023 1 1 Encounter Details Date Type Department Care Team (Late st Contact Info) Description 05/12/2022 Ancillary Orders [facility] Radiology, Outpatient Center (Diag Rad) 534 [facility], [address] [place] [address] Cheri Escobar Jr., PA [address] [place] [address] [phone] (Work) Pain Social History Tobacco Use Types [...] pain documented in this encounter Care Teams Communications Tower Technician Relationship Specialty Start Date End Date Md, Unknown 1 Dont Change PCP - General 05/12/22 documented as of this encounter
--- OUTSIDE RECORDS SUMMARY | 2024-09-19 12:18 | XMS_ITS | Encounter Summary ---
Author Organization [facility] Address [address] [place] [address] Care Team Providers Care Corporate Licensed Broker Name Role Phone Md, Unknown Primary Care Provider Unavailabl e Reason for Referral * Imaging (Routine) - Closed Specialty Diagnoses / Procedures Referred By Penny mcgarry Referred To Contact Radiology Diagnoses Pain Procedures XR THORACIC SPINE 2 VIEWS XR THORACIC SPINE COMPLETE 4+ VIEWS Cheri Escobar Jr., PA [address] [place] [address] Phone: tel: [phone] fax: [facility] Radiology - Central Scheduling [place] Phone: tel: fax: Referral ID Status Reason Start Date Expiration Date V isits Requested Visits Authorized [id number] Closed Perform Procedure 05/12/2022 05/12/2023 1 1 Encounter Details Date Type Department Care Team (Late st Contact Info) Description 05/12/2022 Ancillary Orders [facility] Radiology, Outpatient Center (Diag Rad) 534 [facility], [address] [place] [address] Cheri Escobar Jr., PA [address] [place] [address] [phone] (Work) Pain Social History Tobacco Use Types [...] pain documented in this encounter Care Teams Corporate Licensed Broker Relationship Specialty Start Date End Date Md, Unknown 1 Dont Change PCP - General 05/12/22 documented as of this encounter
--- OUTSIDE RECORDS SUMMARY | 2024-09-19 12:18 | XMS_ITS | Encounter Summary ---
Author Organization [facility] Address [address] [place] [address] Care Team Providers Care Threading Machine Setter Name Role Phone Md, Unknown Primary Care Provider Unavailabl e Reason for Referral * Imaging (Routine) - Closed Specialty Diagnoses / Procedures Referred By Penny mcgarry Referred To Contact Radiology Diagnoses Low back pain Procedures XR LUMBAR SPINE 2-3 VIEWS XR LUMBAR SPINE COMPLETE 4+ VIEWS XR LUMBAR SPINE 6+ VIEWS INCLUDING BENDING Cheri Escobar Jr., PA [address] [place] [address] Phone: tel: [phone] fax: [facility] Radiology - Central Scheduling [place] Phone: tel: fax: Referral ID Status Reason Start Date Expiration Date V isits Requested Visits Authorized [id number] Closed Perform Procedure 05/12/2022 05/12/2023 1 1 Encounter Details Date Type Department Care Team (Late st Contact Info) Description 05/12/2022 Ancillary Orders [facility] Radiology, Outpatient Center (Diag Rad) 534 [facility], [address] [place] [address] Cheri Escobar Jr., PA [address] [place] [place] [address] [phone] (Work) Low back pain Social History Tobacco [...] Lumbago documented in this encounter Care Teams Threading Machine Setter Relationship Specialty Start Date End Date Md, Unknown 1 Dont Change PCP - General 05/12/22 documented as of this encounter
--- OUTSIDE RECORDS SUMMARY | 2024-09-19 12:18 | XMS_ITS | Encounter Summary ---
Author Organization [facility] Address [address] [place] [address] Care Team Providers Care Home Insurance Agent Name Role Phone Md, Unknown Primary Care Provider Unavailabl e Reason for Referral * Imaging (Routine) - Closed Specialty Diagnoses / Procedures Referred By Contac t Referred To Contact Radiology Diagnoses Pain Procedures XR ANKLE 3+ VIEWS BILATERAL Cheri Escobar Jr., PA [address] [place] [address] Phone: tel: [phone] fax: [facility] Radiology - Central Scheduling [place] Phone: tel: fax: Referral ID Status Reason Start Date Expiration Date V isits Requested Visits Authorized [id number] Closed Perform Procedure 05/12/2022 05/12/2023 1 1 * Imaging (Routine) - Closed Specialty Diagnoses / Procedures Referred By Contac t Referred To Contact Radiology Diagnoses Shortness of breath Procedures XR CHEST 2 VIEWS Cheri Escobar Jr., PA [address] [place] [address] Phone: tel: [phone] fax: [facility] Radiology - Central Scheduling [place] Phone: tel: fax: Referral ID Status Reason Start Date Expiration Date V isits Requested Visits Authorized [id number] Closed Perform Procedure 05/12/2022 05/12/2023 1 1 Encounter Details Date Type Department Care Team (Late st Contact Info) Description 05/12/2022 Ancillary Orders [facility] Radiology, Outpatient Center (Diag Rad) [address], [address] [place] [address] Cheri Escobar Jr., PA [address] [facility] [address] [place] [address] [phone] (Work) Shortness of breath; Pain; [...] 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 no known heart or lung disease. , [...] breath documented in this encounter Care Teams Home Insurance Agent Relationship Specialty Start Date End Date Md, Unknown 1 Dont Change PCP - General 05/12/22 documented as of this encounter
--- OUTSIDE RECORDS SUMMARY | 2024-09-19 12:18 | XMS_ITS | Encounter Summary ---
Author Organization [facility] Address [address] [place] [address] Care Team Providers Care Lien Searcher Name Role Phone Md, Unknown Primary Care Provider Unavailabl e Encounter Details Date Type Department Care Team ([facility] st Contact Info) Description 05/12/2022 Ancillary Orders [facility] Radiology, Outpatient Center (Diag Rad) 534 [facility], [address] [place] [address] Cheri Escobar Jr., [address] [address] [phone] (Work) Low back pain Social History Tobacco [...] Lumbago documented in this encounter Care Teams Lien Searcher Relationship Specialty Start Date End Date Md, Unknown 1 Dont Change PCP - General 05/12/22 documented as of this encounter
--- NOTE | 2024-09-19 12:32 | A.OFFVIS_ITS ---
Intake Visit Reasons: PO LT elbow ORIF 09/11/24 NE Intake Note: Iván is a 44 year old right hand dominant male who presents today for a post operative appointment s/p LT elbow ORIF 09/11/24. Patient reports he is doing better after surgery. He came to the office today with a sling and a elliot bandage. Allergies cat dander Allergy (Intermediate, Verified 09/19/24 12:36) Sneezing HPI HPI PO LT elbow ORIF 09/11/24 NE: Details: Mr. Wong is a 44 yo male who presents to the office today for routine follow-up status post left elbow ORIF performed on 09/11/[address] Chung. Overall the patient reports he is doing very well. He is minimal pain. He has been working on range of motion at home by himself. 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 Zia intact. No surrounding erythema or drainage. No signs of infection. Lacking about 10 degrees of full extension. NVI. Assessment & Plan Assessment & Plan (1) Fracture of left olecranon process: Code(s): S52.022A - Displaced fracture of olecranon process without intraarticular extension of left ulna, initial encounter for closed fracture Category: Medical Plan Mr. Wong is a 44 yo male who presents to the office today for routine follow-up status post left elbow ORIF performed on 09/11/[address] Chung. Overall the patient reports he is doing very well. He is minimal pain. He has been working on range of motion at home by himself. While the office today we discussed the role of staple removal however it appears to be too soon at this time. We will wait 1 more week with anticipation of removal of zia. The patient requested when he can return back to driving. At this time with zia still intact I feel so he should refrain from driving at this time. He also requested when it would be appropriate to stop taking opioids. At this time patient decided that he will discontinue taking them. He can switch over to Tylenol/NSAIDs as needed for pain. I have also recommended physical therapy to work on gentle range of motion. He will follow up in 1 week for anticipation of staple removal, sooner if needed. Coding Level of Care Code Global (13638) Diagnoses Fracture of left olecranon process S52.022A
== END | disposition home or self-care (01) ==
PROVIDERS: Visit Provider Physician Assistant
CPT/HCPCS: 99024

== ENCOUNTER → 2024-09-19 13:20 | Outpatient (BNV) | payer OTHER, SELFPAY | PROVIDERS: Visit Provider Radiology Diagnostic Radiology | DX: S52.032D Displaced fracture of olecranon process with intraarticular extension of left ulna, subsequent encounter for closed fracture with routine healing (principal); Z96.7 Presence of other bone and tendon implants | CPT/HCPCS: 73070 ==

== ENCOUNTER 2024-10-01 07:44 | Outpatient (REF) | payer OTHER, SELFPAY ==
--- NOTE | ~2024-10-01 | XR_ITS ---
EXAMINATION: XR ELBOW, LEFT CLINICAL INFORMATION: M25.529 - Pain in unspecified elbow COMPARISON: 09/19/2024, 09/03/2024. TECHNIQUE: AP, lateral, and oblique views of the left elbow. FINDINGS: Redemonstration of two K wire and cerclage wire fixation of a comminuted olecranon fracture. There is stable anatomic alignment. Fracture lines are still readily visible without definite significant sclerosis or gross periosteal new bone formation. No definite residual joint effusion. Skin adela overlie the olecranon. XR/XR elbow LT min 3V IMPRESSION: No significant interval change. Electronically signed by: Sherif Tracy MD 10/02/2024 11:58 AM LISA
--- OUTSIDE RECORDS SUMMARY | 2024-10-01 07:47 | XMS_ITS | Encounter Summary ---
Author Organization [facility] Address [address] [place] [address] Care Team Providers Care Executive Secretary Name Role Phone Md, Unknown Primary Care Provider Unavailabl e Reason for Referral * Imaging (Routine) - Closed Specialty Diagnoses / Procedures Referred By Penny mcgarry Referred To Contact Radiology Diagnoses Low back pain Procedures XR LUMBAR SPINE 2-3 VIEWS XR LUMBAR SPINE COMPLETE 4+ VIEWS XR LUMBAR SPINE 6+ VIEWS INCLUDING BENDING Cheri Escobar Jr., PA [address] [place] [address] Phone: tel: [phone] fax: [facility] Radiology - Central Scheduling [place] Phone: tel: fax: Referral ID Status Reason Start Date Expiration Date V isits Requested Visits Authorized [id number] Closed Perform Procedure 05/12/2022 05/12/2023 1 1 Encounter Details Date Type Department Care Team (Late st Contact Info) Description 05/12/[address] [facility] Radiology, Outpatient Center (Diag Rad) 534 [facility], [address] [place] [address] Cheri Escobar Jr., PA [address] [place] [address] [phone] (Work) Low back pain Social History Tobacco [...] Lumbago documented in this encounter Care Teams Executive Secretary Relationship Specialty Start Date End Date Md, Unknown 1 Dont Change PCP - General 05/12/22 documented as of this encounter
--- OUTSIDE RECORDS SUMMARY | 2024-10-01 07:47 | XMS_ITS | Encounter Summary ---
Author Organization [facility] Address [address] [place] [address] Care Team Providers Care Deck Worker Name Role Phone Md, Unknown Primary Care Provider Unavailabl e Encounter Details Date Type Department Care Team ([facility] st Contact Info) Description 05/12/2022 Ancillary Orders [facility] Radiology, Outpatient Center (Diag Rad) 534 [facility], [address] [place] [address] Cheri Escobar Jr., PA [address] [place] [address] [phone] (Work) Low back pain Social History Tobacco [...] Lumbago documented in this encounter Care Teams Deck Worker Relationship Specialty Start Date End Date Md, Unknown 1 Dont Change PCP - General 05/12/22 documented as of this encounter
--- OUTSIDE RECORDS SUMMARY | 2024-10-01 07:47 | XMS_ITS | Clinical Summary ---
Author Organization [facility] Address [address] [place] [address] Care Team Providers Care Ekg Monitor Tech Name Role Phone Md, Unknown Primary Care [...] this topic Insurance [employer] Care Teams Ekg Monitor Tech Relationship Specialty Start Date End Date Md, Unknown 1 Dont Change PCP - General 05/12/22
--- OUTSIDE RECORDS SUMMARY | 2024-10-01 07:47 | XMS_ITS | Encounter Summary ---
Author Organization [facility] Address [address] [place] [address] Care Team Providers Care Accounting Technician Name Role Phone Md, Unknown Primary Care Provider Unavailabl e Reason for Referral * Imaging (Routine) - Closed Specialty Diagnoses / Procedures Referred By Contac t Referred To Contact Radiology Diagnoses Pain Procedures XR ANKLE 3+ VIEWS BILATERAL Cheri Escobar Jr., PA [address] [place] [address] Phone: tel: [phone] fax: [facility] Radiology - Central Scheduling [place] Phone: tel: fax: Referral ID Status Reason Start Date Expiration Date V isits Requested Visits Authorized [id number] Closed Perform Procedure 05/12/2022 05/12/2023 1 1 * Imaging (Routine) - Closed Specialty Diagnoses / Procedures Referred By Contac t Referred To Contact Radiology Diagnoses Shortness of breath Procedures XR CHEST 2 VIEWS Cheri Escobar Jr., PA [address] [place] [address] Phone: tel: [phone] fax: [facility] Radiology - Central Scheduling [place] Phone: tel: fax: Referral ID Status Reason Start Date Expiration Date V isits Requested Visits Authorized [id number] Closed Perform Procedure 05/12/2022 05/12/2023 1 1 Encounter Details Date Type Department Care Team (Late st Contact Info) Description 05/12/2022 Ancillary Orders [facility] Radiology, Outpatient Center (Diag Rad) [address], [address] [place] [address] Cheri Escobar Jr., PA [address] [facility] [address] [place] [address] [phone] (Work) Shortness of breath; Pain; [...] worked around the burn pits in [place] [id number]. no known heart or lung disease. , [...] breath documented in this encounter Care Teams Accounting Technician Relationship Specialty Start Date End Date Md, Unknown 1 Dont Change PCP - General 05/12/22 documented as of this encounter
--- OUTSIDE RECORDS SUMMARY | 2024-10-01 07:47 | XMS_ITS | Encounter Summary ---
Author Organization [facility] Address [address] [place] [address] Care Team Providers Care Parts Interpreter Name Role Phone Md, Unknown Primary Care Provider Unavailabl e Reason for Referral * Imaging (Routine) - Closed Specialty Diagnoses / Procedures Referred By Penny mcgarry Referred To Contact Radiology Diagnoses Pain Procedures XR THORACIC SPINE 2 VIEWS XR THORACIC SPINE COMPLETE 4+ VIEWS Cheri Escobar Jr., PA [address] [place] [address] Phone: tel: [phone] fax: [facility] Radiology - Central Scheduling [place] Phone: tel: fax: Referral ID Status Reason Start Date Expiration Date V isits Requested Visits Authorized [id number] Closed Perform Procedure 05/12/2022 05/12/2023 1 1 Encounter Details Date Type Department Care Team (Late st Contact Info) Description 05/12/[address] [facility] Radiology, Outpatient Center (Diag Rad) [address] [facility], [address] [place] [address] Cheri Escobar Jr., PA [address] [place] [address] [phone] (Work) Pain Social History Tobacco Use Types [...] pain documented in this encounter Care Teams Parts Interpreter Relationship Specialty Start Date End Date Md, Unknown 1 Dont Change PCP - General 05/12/22 documented as of this encounter
--- OUTSIDE RECORDS SUMMARY | 2024-10-01 07:47 | XMS_ITS | Encounter Summary ---
Author Organization [facility] Address [address] [place] [address] Care Team Providers Care Lot Worker Name Role Phone Md, Unknown Primary Care Provider Unavailabl e Reason for Referral * Imaging (Routine) - Closed Specialty Diagnoses / Procedures Referred By Penny mcgarry Referred To Contact Radiology Diagnoses Pain Procedures XR KNEE 1-2 VIEWS BILAT XR KNEE 3 VIEWS BILATERAL Cheri Escobar Jr., PA [address] [place] [address] Phone: tel: [phone] fax: [facility] Radiology - Central Scheduling [place] Phone: tel: fax: Referral ID Status Reason Start Date Expiration Date V isits Requested Visits Authorized [id number] Closed Perform Procedure 05/12/2022 05/12/2023 1 1 Encounter Details Date Type Department Care Team (Late st Contact Info) Description 05/12/2022 Ancillary Orders [facility] Radiology, Outpatient Center (Diag Rad) [address] [facility], [address] [place] [address] Cheri Escobar Jr., PA [address] [place] [address] [phone] (Work) Pain Social History Tobacco Use Types [...] pain documented in this encounter Care Teams Lot Worker Relationship Specialty Start Date End Date Md, Unknown 1 Dont Change PCP - General 05/12/22 documented as of this encounter
== END 2024-10-01 07:45 | disposition home or self-care (01) ==
LOC: HO.HOSX 07:44
PROVIDERS: Visit Provider Physician Assistant
DX: M25.522 Pain in left elbow (principal); S52.022A Displaced fracture of olecranon process without intraarticular extension of left ulna, initial encounter for closed fracture
CPT/HCPCS: 73080; 99212

== ENCOUNTER 2024-10-01 15:00 | Outpatient (AMB) | payer OTHER, SELFPAY ==
--- NOTE | 2024-10-01 15:08 | MHC.OFFVIS ---
Intake Visit Reasons: PO LT elbow ORIF 09/11/24 NE Intake Note: Iván is a 44 year old right hand dominant male who presents today for a post operative appointment s/p LT elbow ORIF 09/11/24. Patient reports he is doing well. He feels that his adela are ready to be removed. He mentions that he is returning medication that he was told that he could give it to us. Allergies cat dander Allergy (Intermediate, Verified 10/01/24 15:10) Sneezing HPI HPI PO LT elbow ORIF 09/11/24 NE: Details: Mr. Wong is a 44-year-old male who presents to the office today for routine follow-up status post left elbow ORIF performed on 09/11/[address] Chung. Patient is overall doing very well. Pain is controlled. 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 [place] intact. No surrounding erythema or drainage. No signs of infection. Lacking about 10 degrees of full extension. NVI. Assessment & Plan Assessment & Plan (1) Fracture of left olecranon process: Code(s): S52.022A - Displaced fracture of olecranon process without intraarticular extension of left ulna, initial encounter for closed fracture Category: Medical Plan Mr. Wong is a 44-year-old male who presents to the office today for routine follow-up status post left elbow ORIF performed on 09/11/[address] Chung. Patient is overall doing very well. Pain is controlled. While the office today adela removed, Steri-Strips were applied. Patient was encouraged to attend physical therapy. I placed an order today while the office. I also provided him a light duty work note until his follow-up appointment. He will follow up in 4 weeks, sooner if needed. Orders: Orders XR elbow LT min 3V Today M25.529 - Pain in unspecified elbow Coding Level of Care Code Global (86705) Diagnoses Fracture of left olecranon process S52.022A
--- OUTSIDE RECORDS SUMMARY | 2024-10-01 15:58 | XMS_ITS | Encounter Summary ---
Author Organization [facility] Address [address] [place] [address] Care Team Providers Care Hydraulic And Plumbing Installer Name Role Phone Md, Unknown Primary Care Provider Unavailabl e Reason for Referral * Imaging (Routine) - Closed Specialty Diagnoses / Procedures Referred By Penny mcgarry Referred To Contact Radiology Diagnoses Low back pain Procedures XR LUMBAR SPINE 2-3 VIEWS XR LUMBAR SPINE COMPLETE 4+ VIEWS XR LUMBAR SPINE 6+ VIEWS INCLUDING BENDING Cheri Escobar Jr., PA [address] [place] [address] Phone: tel: [phone] fax: [facility] Radiology - Central Scheduling [place] Phone: tel: fax: Referral ID Status Reason Start Date Expiration Date V isits Requested Visits Authorized [id number] Closed Perform Procedure 05/12/2022 05/12/2023 1 1 Encounter Details Date Type Department Care Team (Late st Contact Info) Description 05/12/2022 Ancillary Orders [facility] Radiology, Outpatient Center (Diag Rad) [address] [facility], [address] [place] [address] Cheri Escobar Jr., PA [address] [place] [address] [phone] (Work) Low back pain Social History Tobacco [...] Lumbago documented in this encounter Care Teams Hydraulic And Plumbing Installer Relationship Specialty Start Date End Date Md, Unknown 1 Dont Change PCP - General 05/12/22 documented as of this encounter
--- OUTSIDE RECORDS SUMMARY | 2024-10-01 15:58 | XMS_ITS | Encounter Summary ---
Author Organization [facility] Address [address] [place] [address] Care Team Providers Care Doubler Operator Name Role Phone Md, Unknown Primary Care Provider Unavailabl e Reason for Referral * Imaging (Routine) - Closed Specialty Diagnoses / Procedures Referred By Contac t Referred To Contact Radiology Diagnoses Pain Procedures XR ANKLE 3+ VIEWS BILATERAL Cheri Escobar Jr., PA [address] [place] [address] Phone: tel: [phone] fax: [facility] Radiology - Central Scheduling [place] Phone: tel: fax: Referral ID Status Reason Start Date Expiration Date V isits Requested Visits Authorized [id number] Closed Perform Procedure 05/12/2022 05/12/2023 1 1 * Imaging (Routine) - Closed Specialty Diagnoses / Procedures Referred By Contac t Referred To Contact Radiology Diagnoses Shortness of breath Procedures XR CHEST 2 VIEWS Cheri Escobar Jr., PA [address] [place] [address] Phone: tel: [phone] fax: [facility] Radiology - Central Scheduling [place] Phone: tel: fax: Referral ID Status Reason Start Date Expiration Date V isits Requested Visits Authorized [id number] Closed Perform Procedure 05/12/2022 05/12/2023 1 1 Encounter Details Date Type Department Care Team (Late st Contact Info) Description 05/12/2022 Ancillary Orders [facility] Radiology, Outpatient Center (Diag Rad) [address], [address] [place] [address] Cheri Escobar Jr., PA [address] [facility] [address] [place] [address] [phone] (Work) Shortness of breath; Pain; [...] 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 no known heart or lung disease. , [...] breath documented in this encounter Care Teams Doubler Operator Relationship Specialty Start Date End Date Md, Unknown 1 Dont Change PCP - General 05/12/22 documented as of this encounter
--- OUTSIDE RECORDS SUMMARY | 2024-10-01 15:58 | XMS_ITS | Encounter Summary ---
Author Organization [facility] Address [address] [place] [address] Care Team Providers Care Wire Bound Box Machine Helper Name Role Phone Md, Unknown Primary Care Provider Unavailabl e Reason for Referral * Imaging (Routine) - Closed Specialty Diagnoses / Procedures Referred By Penny mcgarry Referred To Contact Radiology Diagnoses Pain Procedures XR KNEE 1-2 VIEWS BILAT XR KNEE 3 VIEWS BILATERAL Cheri Escobar Jr., PA [address] [place] [address] Phone: tel: [phone] fax: [facility] Radiology - Central Scheduling [place] Phone: tel: fax: Referral ID Status Reason Start Date Expiration Date V isits Requested Visits Authorized [id number] Closed Perform Procedure 05/12/2022 05/12/2023 1 1 Encounter Details Date Type Department Care Team (Late st Contact Info) Description 05/12/[address] [facility] Radiology, Outpatient Center (Diag Rad) [address] [facility], [address] [place] [address] Cheri Escobar Jr., PA [address] [place] [address] [phone] (Work) Pain Social History Tobacco Use Types [...] pain documented in this encounter Care Teams Wire Bound Box Machine Helper Relationship Specialty Start Date End Date Md, Unknown 1 Dont Change PCP - General 05/12/22 documented as of this encounter
--- OUTSIDE RECORDS SUMMARY | 2024-10-01 15:58 | XMS_ITS | Encounter Summary ---
Author Organization [facility] Address [address] [place] [address] Care Team Providers Care Travertine Installer Name Role Phone Md, Unknown Primary Care Provider Unavailabl e Encounter Details Date Type Department Care Team ([facility] st Contact Info) Description 05/12/2022 Ancillary Orders [facility] Radiology, Outpatient Center (Diag Rad) [address] [facility], [address] [place] [address] Cheri Escobar Jr., PA [address] [place] [phone] (Work) Low back pain Social History Tobacco [...] Lumbago documented in this encounter Care Teams Travertine Installer Relationship Specialty Start Date End Date Md, Unknown 1 Dont Change PCP - General 05/12/22 documented as of this encounter
--- OUTSIDE RECORDS SUMMARY | 2024-10-01 15:58 | XMS_ITS | Encounter Summary ---
Author Organization [facility] Address [address] [place] [address] Care Team Providers Care Glove Presser Name Role Phone Md, Unknown Primary Care Provider Unavailabl e Reason for Referral * Imaging (Routine) - Closed Specialty Diagnoses / Procedures Referred By Penny mcgarry Referred To Contact Radiology Diagnoses Pain Procedures XR THORACIC SPINE 2 VIEWS XR THORACIC SPINE COMPLETE 4+ VIEWS Cheri Escobar Jr., PA [address] [place] [address] Phone: tel: [phone] fax: [facility] Radiology - Central Scheduling [place] Phone: tel: fax: Referral ID Status Reason Start Date Expiration Date V isits Requested Visits Authorized [id number] Closed Perform Procedure 05/12/2022 05/12/2023 1 1 Encounter Details Date Type Department Care Team (Late st Contact Info) Description 05/12/2022 Ancillary Orders [facility] Radiology, Outpatient Center (Diag Rad) [address] [facility], [address] [place] [id number] Cheri Escobar Jr., PA [address] [place] [address] [phone] (Work) Pain Social History Tobacco Use Types [...] pain documented in this encounter Care Teams Glove Presser Relationship Specialty Start Date End Date Md, Unknown 1 Dont Change PCP - General 05/12/22 documented as of this encounter
--- OUTSIDE RECORDS SUMMARY | 2024-10-01 15:58 | XMS_ITS | Clinical Summary ---
Author Organization [facility] Address [address] [place] [address] Care Team Providers Care Order Packer Or Packager Name Role Phone Md, Unknown Primary Care [...] this topic Insurance [employer] Care Teams Order Packer Or Packager Relationship Specialty Start Date End Date Md, Unknown 1 Dont Change PCP - General 05/12/22
== END 2024-10-01 15:42 | disposition home or self-care (01) ==
PROVIDERS: Visit Provider Physician Assistant
DX: S52.022A Displaced fracture of olecranon process without intraarticular extension of left ulna, initial encounter for closed fracture (principal)
CPT/HCPCS: 99024

== ENCOUNTER → 2024-10-01 15:02 | Outpatient (BNV) | payer OTHER, SELFPAY | PROVIDERS: Visit Provider Radiology Diagnostic Radiology | DX: S52.032D Displaced fracture of olecranon process with intraarticular extension of left ulna, subsequent encounter for closed fracture with routine healing (principal) | CPT/HCPCS: 73080 ==

== ENCOUNTER 2024-11-01 08:39 | Outpatient (REF) | payer OTHER, SELFPAY ==
--- NOTE | ~2024-11-01 | XR_ITS ---
EXAMINATION: XR ELBOW 3 VIEWS LEFT HISTORY: M25.529 - Pain in unspecified elbow COMPARISON: Comparison is made with the prior examination dated 10/01/2024. FINDINGS: Three views of the left elbow are submitted. Osseous mineralization is normal. The patient is again noted to be status post internal fixation of a fracture of the olecranon process of the ulna. The orthopedic hardware is intact. The fracture line remains visible. The joint spaces are preserved. The soft tissues are unremarkable. XR/XR elbow LT min 3V IMPRESSION: Internal fixation of a fracture of the olecranon process of the ulna without change. Electronically signed by: Joesph Canales MD 11/04/2024 09:30 AM EDT
== END 2024-11-01 08:40 | disposition home or self-care (01) ==
LOC: HO.HOSX 08:39
PROVIDERS: Visit Provider Physician Assistant
DX: M25.522 Pain in left elbow (principal); S52.022A Displaced fracture of olecranon process without intraarticular extension of left ulna, initial encounter for closed fracture
CPT/HCPCS: 73080; 99212

== ENCOUNTER 2024-11-01 13:43 | Outpatient (AMB) | payer OTHER, SELFPAY ==
--- NOTE | 2024-11-01 13:54 | MHC.OFFVIS ---
Vital Signs 11/01/24 13:56 Height 6 ft 3 in Weight 267 lb BMI 33.4 Intake Visit Reasons: PO - LT elbow ORIF 09/11/24 NE Intake Note: Iván is a 44 year old right hand dominant male who presents today for a post operative appointment s/p LT elbow ORIF, DOS 09/11/24. Patient reports he is doing well, states very little discomfort at his incision area. He had his first initial PT visit a week ago and is scheduled for Monday. Allergies cat dander Allergy (Intermediate, Verified 11/01/24 13:59) Sneezing HPI HPI PO - LT elbow ORIF 09/11/24 NE: Details: Mr. Wong is a 44-year-old male who presents the office today for routine follow-up status post left elbow ORIF performed on 09/11/[address] Chung. Patient has attended his 1st occupational therapy visit. He reports that he has no pain and is only lacking slight full extension. She reports that he has been progressing with activities and weight and has not experienced any discomfort. He is anxious to get back to work full-time regular duty. 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 Prior incision site is well approximated and fully healed. He is lacking about 10 degrees of full extension and able to perform full flexion, pronation and supination. NVI. Assessment & Plan Assessment & Plan (1) Fracture of left olecranon process: Code(s): S52.022A - Displaced fracture of olecranon process without intraarticular extension of left ulna, initial encounter for closed fracture Category: Medical Plan Mr. Wong is a 44-year-old male who presents the office today for routine follow-up status post left elbow ORIF performed on 09/11/[address] Chung. Patient has attended his 1st occupational therapy visit. He reports that he has no pain and is only lacking slight full extension. She reports that he has been progressing with activities and weight and has not experienced any discomfort. He is anxious to get back to work full-time regular duty. While the office today, the patient is adamant that he returns back to work full-time regular duty. Initially I did not recommend that the patient return full-time regular duty but the patient reports that it is needed at this time and he feels ready to do so. The fracture line is still visible on the x-rays and this is where my concern lies with returning back to work full-time regular duty. However, the patient reports that he is going to restrict weight with using the left upper extremity. He will stop immediately if he feels an increase in pain in the left upper extremity. He will contact our office if there is any concern of re-injury to the left upper extremity. Understands the risks in returning back to work full-time regular duty. Therefore, per the patient request I have given him a return to work note full-time regular duty. He will follow up p.r.n., sooner if needed as the patient reports he is doing very well and back to his baseline. X-rays of the left elbow which were obtained while in the office today and were reviewed by me, Ursula Boothe PA-C, revealed intact orthopedic hardware with routine healing. Orders: Orders XR elbow LT min 3V Today M25.529 - Pain in unspecified elbow Coding Level of Care Code Global (63605) Diagnoses Fracture of left olecranon process S52.022A
[2024-11-01 13:56] VITALS: BMI 33.4
== END 2024-11-01 14:28 | disposition home or self-care (01) ==
LOC: HO.HOS 13:43
PROVIDERS: Referring Provider Physician Assistant; Visit Provider Physician Assistant
DX: S52.022A Displaced fracture of olecranon process without intraarticular extension of left ulna, initial encounter for closed fracture (principal)
CPT/HCPCS: 99024

== ENCOUNTER → 2024-11-01 13:45 | Outpatient (BNV) | payer OTHER, SELFPAY | PROVIDERS: Visit Provider Radiology Diagnostic Radiology | DX: S52.022A Displaced fracture of olecranon process without intraarticular extension of left ulna, initial encounter for closed fracture (principal) | CPT/HCPCS: 73080 ==

== ENCOUNTER 2024-11-19 15:30 | Outpatient (RCR) | payer OTHER, SELFPAY ==
--- NOTE | 2024-10-24 16:09 | MHC.OT.EP ---
[address] [phone] Occupational Therapy Plan of Care Patient Name: Iván Wong Date of Evaluation: 10/24/24 Diagnosis: Pain Location: L elbow Pain Score: 1 Pain Scale Used: Numeric (0 - 10) Aggravating Factors: could not quantify Alleviating Factors: ice Assessment: Pt is a 44 yr old R hand dominant male who fell on the ice on 09/02/24 and fractured his L olecranon. He had surgery on 09/11 to repair the fracture. Pt reports mild pain w/ activity but has been modifying as needed. He presents today w/ decreased ROM, but WNL strength (R: 80lbs, L:85lbs), and a DASH score of 4.54%. Pt would benefit from skilled OT therapy to educate pt on scar massage , decreasing scar sensitivity, and increasing ROM for pt to RPLOF. Frequency and Duration: The patient will be seen 2xs a week for 4 weeks Short Term Goals: Pt will be compliant w/ his HEP Pt will have (-10) of elbow extension Pt will be compliant w/ scar massage Halfway Goals: Pt will report being able to lift 10 lbs consecutively 5 x's w/ out pain or fatigue of L UE Pt will RPLOF Treatment Plan: Therapeutic Exercise Therapeutic Activity Home Exercise Program Splinting Neuro Re-ed Patient Education Desensitization/Sensory Re-ed Edema Control ADL Training Ultrasound NMES Iontophoresis Paraffin Fluidotherapy MHP Cold Packs Joint Mobilization Soft Tissue Mobilization Kinesiotaping Other (see comments) Electronically Signed By: Bryanna Esquivel OTR/L Please Sign and return to therapist. Thank you once again for your referral.
== END 2024-11-19 15:33 | disposition home or self-care (01) ==
LOC: HO.OT 15:30
PROVIDERS: PCP Internal Medicine; Visit Provider Physician Assistant
DX: S52.022D Displaced fracture of olecranon process without intraarticular extension of left ulna, subsequent encounter for closed fracture with routine healing (principal)
CPT/HCPCS: 97110; 97140; 97165; 97535